=== PATIENT | female | born 1985 | race Caucasian/White ===

== ENCOUNTER 2017-05-15 07:16 | Emergency (ER) | payer BC ==
[~2017-05-15] VITALS: Ht 162.6 cm; Wt 104.3 kg
[~2017-05-15 07:16] MED LIST: ACYC400T PO; CIPR250T30 PO
--- NOTE | 2017-05-15 07:39 | PHYS DOC ---
Past Medical History Past Medical History: No Pertinent History, Other Additional Past Medical Histor: pilonidal cyst Past Surgical History: No Surgical History Alcohol Use: None Drug Use: None Adult General Chief Complaint Chief Complaint: COUGH HPI HPI Patient is a 32 year old female presents to the ED complaining of cough 2 days. Patient states she has a history of asthma. Describes the cough as dry. Rates the cough as 8 out of 10. Associated symptoms include sore throat and rhinorrhea. Pack a day smoker for 4 months and quit 1 week ago. Denies chest pain, shortness of breath, dizziness, weakness, headache, body aches, abdominal pain or nausea/vomiting. Review of Systems Review of Systems Constitutional: Denies fever or chills [] Eyes: Denies change in visual acuity, redness, or eye pain [] HENT: Complains of rhinorrhea and sore throat. [] Respiratory: Complains of cough. Denies shortness of breath [] Cardiovascular: No additional information not addressed in HPI [] GI: Denies abdominal pain, nausea, vomiting, bloody stools or diarrhea [] : Denies dysuria or hematuria [] Musculoskeletal: Denies back pain or joint pain [] Integument: Denies rash or skin lesions [] Neurologic: Denies headache, focal weakness or sensory changes [] Endocrine: Denies polyuria or polydipsia [] All other systems were reviewed and found to be within normal limits, except as documented in this note. Current Medications Current Medications Current Medications Medications (Trade) Dose Ordered Sig/Essence Start Time Stop Time Status Last Admin Dose Admin Albuterol/ Ipratropium (Duoneb) 3 ml 1X ONCE 05/15/17 08:45 05/15/17 08:46 DC 05/15/17 08:44 3 ML Benzonatate (Tessalon Perle) 100 mg 1X ONCE 05/15/17 07:45 05/15/17 07:46 DC 05/15/17 07:49 100 MG Methylprednisolone Sodium Succinate (SOLU-Medrol 125MG VIAL) 125 mg 1X ONCE 05/15/17 07:45 05/15/17 07:46 DC 05/15/17 07:49 125 MG Allergies Allergies Allergies Coded Allergies Type Severity Reaction Last Updated Verified No Known Drug Allergies 05/15/17 No Physical Exam Physical Exam Constitutional: Well developed, well nourished, no acute distress, non-toxic appearance. [] HENT: Normocephalic, atraumatic, bilateral external ears normal, oropharynx moist, no oral exudates, nose normal. [] Eyes: PERRLA, EOMI, conjunctiva normal, no discharge. [] Neck: Normal range of motion, no tenderness, supple, no stridor. [] Cardiovascular:Heart rate regular rhythm, no murmur [] Lungs & Thorax: Bilateral breath sounds. MILD WHEEZING BILATERALLY. [] Abdomen: Bowel sounds normal, soft, no tenderness, no masses, no pulsatile masses. [] Skin: Warm, dry, no erythema, no rash. [] Back: No tenderness, no CVA tenderness. [] Extremities: No tenderness, no cyanosis, no clubbing, ROM intact, no edema. [] Neurologic: Alert and oriented X 3, normal motor function, normal sensory function, no focal deficits noted. [] Psychologic: Affect normal, judgement normal, mood normal. [] Current Patient Data Vital Signs Vital Signs Date Time Temp Pulse Resp B/P (MAP) Pulse Ox O2 Delivery O2 Flow Rate FiO2 05/15/17 09:00 82 20 122/82 (95) 98 Room Air 05/15/17 07:36 99.3 99.3 EKG EKG [] Radiology/Procedures Radiology/Procedures PROCEDURE: CHEST PA & LATERAL CHEST PA LATERAL Clinical Indication: PNEUMONIA Comparison: None. Technique: Frontal and lateral views of the chest are obtained. Findings: No focal consolidation, pleural effusion or pneumothorax is seen. Cardiomediastinal silhouette is within normal limits of size. Visualized osseous structures and overlying soft tissues demonstrate no acute finding. IMPRESSION: No focal consolidation to suggest pneumonia. [] Course & Med Decision Making Course & Med Decision Making Pertinent Labs and Imaging studies reviewed. (See chart for details) []Discussed imaging findings with patient. Patient improved after breathing treatment. States she is much better. Will discharge with inhaler, azithromycin and prednisone. Discussed follow-up with PCP in one to 2 days. Provided contact information/education. Discussed reasons to return to the ED. Patient understands and agrees with plan. Dragon Disclaimer Dragon Disclaimer This electronic medical record was generated, in whole or in part, using a voice recognition dictation system. Departure Departure Impression: Primary Impression: Acute bronchitis Disposition: 01 HOME, SELF-CARE Condition: IMPROVED Referrals: PALMA KENNEDY MD (PCP) Patient Instructions: Acute Bronchitis Scripts Albuterol Sulfate (PROAIR HFA INHALER) 8.5 Gm Hfa.aer.ad 1 PUFF INH PRN Q6HRS Y for SHORTNESS OF BREATH, #1 INHALER 0 Refills Prov: TALIA DANIELS 05/15/17 Prednisone (PREDNISONE) 20 Mg Tablet 2 TAB PO DAILY, #10 TAB Prov: TALIA DANIELS 05/15/17 Azithromycin (AZITHROMYCIN TABLET) 250 Mg Tablet 1 PKG PO UD, #6 TAB Prov: TALIA DANIELS 05/15/17 TALIA DANIELS May 15, 2017 07:39
[2017-05-15] MEDS ORDERED: BENZONATATE 100 MG CAPSULE. PO ONE (07:45)
[2017-05-15] MEDS ORDERED: methylPREDNISolone SOD SUCC PF 125 MG/2 ML VIAL. IM ONE (07:45)
[2017-05-15] MEDS ORDERED: IPRATRPIUM/ALBUTEROL 0.5/2.5MG 3 ML NEBU. NEB ONE ×2 (07:45→08:45)
--- NOTE | 2017-05-15 08:11 | RAD ---
CHEST PA LATERAL Clinical Indication: PNEUMONIA Comparison: None. Technique: Frontal and lateral views of the chest are obtained. Findings: No focal consolidation, pleural effusion or pneumothorax is seen. Cardiomediastinal silhouette is within normal limits of size. Visualized osseous structures and overlying soft tissues demonstrate no acute finding. IMPRESSION: No focal consolidation to suggest pneumonia.
[2017-05-15] MEDS ORDERED: PRED20TA PO (08:22)
[2017-05-15] MEDS ORDERED: AZIT250T6 PO (08:22)
[2017-05-15] MEDS ORDERED: PROAIR HFA8.5 GM INH (08:22)
[2017-05-15 09:00] VITALS: BP 122/82
== END 2017-05-15 09:14 | disposition home or self-care (01) ==
LOC: ER 07:16
DX: J20.9 Acute bronchitis, unspecified (principal); J45.909 Unspecified asthma, uncomplicated; Z87.891 Personal history of nicotine dependence
CPT/HCPCS: 71020; 94250; 94640; 96372; 99284; J2930; J7620

== ENCOUNTER → 2020-06-12 | Outpatient (CLI) | payer BC ==
[~2020-06-12] MED LIST changes: +ALBU2.5V8 INH; +AZIT250T6 PO; +PRED20TA PO
--- NOTE | 2020-06-12 14:42 | RAD ---
Examination: Bilateral digital diagnostic mammogram. INDICATION: 35-year-old woman with 2 adjacent palpable lumps in the superior medial right breast on s elf exam. TECHNIQUE: CC and MLO views of both breasts were obtained with 2-D and 3-D technique and reviewed wit h computer-aided detection. The area of patient's reported palpable concern in the upper inner medial third right breast was marked with a triangular marker the skin surface. FINDINGS: Heterogeneously dense breast parenchyma. Negative left mammogram. Right mammogram shows a few scattered calcifications, mammographically benign. The area of palpable concern as marked with a triangular marker at the skin surface in the upper inne r right breast corresponds with a pair of mammographically benign oil cysts respectively measuring 1. 0 and 0.8 cm in size. IMPRESSION: Benign oil cysts in the upper inner right breast corresponding with the palpable abnormality. BI-RADS Category 2 Benign findings Recommend clinical management which may include biopsy if there are any clinically suspicious finding s. In the absence of any clinically suspicious findings, recommend return to age-appropriate routine annual mammographic screening next due in average risk remain at age 40. Patient entered into a reminder system with targeted due date for next mammogram. Electronically signed by: Tereza Garcia MD (06/12/2020 2:39 PM) [id number]
== END ==
LOC: MAMMO 12:29
PROVIDERS: ATTEND Obstetrics & Gynecology
DX: N60.81 Other benign mammary dysplasias of right breast (principal)
CPT/HCPCS: 77066; G0279; 77062